=== PATIENT | male | born 1985 | race Caucasian/White ===

== ENCOUNTER 2017-09-01 19:35 | Inpatient (IN) | payer OTHER ==
[~2017-09-01] VITALS: Ht 175.3 cm; Wt 75.7 kg
[~2017-09-01 19:35] MED LIST: ABILIFY20 MG PO; BUSPIRONE HCL10 MG PO; KLONOPIN1 MG; NOHOMEMEDICATIONS; PROZAC 20 MG20 M1 PO; SEROQUEL 50 MG50 MG PO; TRAZODONE 100100 MG PO; ULTRAM 50MG TAB50 MG PO; VALIUM5 MG PO; XANAX 0.25 MG0.25 MG; XANAX 1 MG TABLE1 MG PO; XANAX1 MG PO; ZOCOR20 MG PO
[2017-09-01 19:39] VITALS: BP 137/81
[2017-09-01] MEDS ORDERED: LITHIUM CARBON150 MG PO (19:42)
[2017-09-01] MEDS ORDERED: LITHIUM CARBON300 M6 PO (19:42)
[2017-09-01] MEDS ORDERED: CHLORPROMAZINE100 MG PO (19:43)
[2017-09-01 20:05] LABS: HEMATOCRIT 43.2 % (42.0-52.0); HEMOGLOBIN 14.5 gm/dL (14.0-18.0); MCH 30.3 pg (26.0-34.0); MCHC 33.7 g/dL (28.0-37.0); MPV 8.4 fl. (7.2-11.1); NUCLEATED RBCS 0 /100WBC; PLATELET COUNT* 225 thou/uL (150-400); RDW-CV 13.2 % (10.5-14.5); WBC 14.4 thou/uL (4.0-11.0)
[2017-09-01 20:10] LABS: CALCIUM 9.4 mg/dL (8.5-10.1); CREATININE 1.1 mg/dL (0.6-1.3)
[2017-09-01 20:11] LABS: URINE BILIRUBIN NEGATIVE (Negative); URINE BLOOD NEGATIVE (Negative); URINE CLARITY CLEAR; URINE COLOR YELLOW; URINE GLUCOSE-RANDOM NEGATIVE (Negative); URINE KETONES NEGATIVE (Negative); URINE LEUKOCYTES-REFLEX NEGATIVE (Negative); URINE NITRITE-REFLEX NEGATIVE (Negative); URINE PROTEIN 1+ (Negative)
[2017-09-01 20:15] LABS: ALBUMIN 3.7 g/dL (3.4-5.0); TOTAL BILIRUBIN 0.5 mg/dL (<0.1-1.0); TOTAL PROTEIN 7.4 g/dL (6.4-8.2)
[2017-09-01 20:19] LABS: AMP/METHAMP Negative (Negative); BARBITURATES Negative (Negative); BENZODIAZEPINES Negative (Negative); COCAINE Negative (Negative); METHADONE Negative (Negative); OPIATES Negative (Negative); PCP Negative (Negative); THC Negative (Negative)
[2017-09-01 20:20] LABS: ABSOLUTE LYMPHOCYTES 1.2 thou/uL (0.8-5.3); ABSOLUTE NEUTROPHILS 12.2 thou/uL (1.6-8.1); ATYPICAL LYMPHS 2 %; PLATELET ESTIMATE ADEQUATE
[2017-09-01 20:21] LABS: ALCOHOL < 10 mg/dL (<10); SALICYLATE < 2.8 mg/dL (2.8-20.0)
[2017-09-01 20:23] LABS: ACETAMINOPHEN < 2 ug/mL (10-30)
[2017-09-01] MEDS ORDERED: NEURONTIN 400M400 M2 (21:11)
[2017-09-01] MEDS ORDERED: HYDROXYZINE HCL50 MG (21:12)
[2017-09-01 23:37] VITALS: BP 122/64
[2017-09-02] VITALS: BP 125/66
[2017-09-02 02:00] VITALS: BP 107/61
[2017-09-02 04:42] LABS: HEMATOCRIT 39.7 % (42.0-52.0); HEMOGLOBIN 13.1 gm/dL (14.0-18.0); MCH 29.7 pg (26.0-34.0); MCV 90.1 fL (80.0-100.0); MPV 8.1 fl. (7.2-11.1); RBC 4.41 mil/uL (4.50-6.00); RDW-CV 13.8 % (10.5-14.5)
[2017-09-02 05:08] LABS: ALBUMIN 2.9 g/dL (3.4-5.0); CALCIUM 8.7 mg/dL (8.5-10.1); CREATININE 1.1 mg/dL (0.6-1.3); POTASSIUM 3.6 mmol/L (3.5-5.1); TOTAL BILIRUBIN 0.4 mg/dL (<0.1-1.0); TOTAL PROTEIN 5.9 g/dL (6.4-8.2)
--- NOTE | 2017-09-02 05:18 | NUR ---
PT ARRIVED ON UNIT FROM ER AT 2345, VS AND ASSESSMENT STABLE PT ALERT AND ORIENTED X4 DENIES ANY PAIN OR NAUSEA AND PT HAD NO EPISODES OF VOMITING OVERNIGHT.PLACE ON SZ PRECUATIONS AND PADED BEDRAILS PT HAD 1:1 AT BEDSIDE. PT TELE FIRST DEGREE HEART BLOCK REGULAR AND RATE IN THE 90'S PT SLEPT THROUGH THE NIGHT BUT WAS EASILY ARROUSABLE FOR ASSESSMENTS VS AND LABS. WILL CONTINUE TO MONITOR.
--- NOTE | 2017-09-02 07:15 | NUR ---
SHIFT CHANGE REPORT GIVEN PATIENT YVONNE, RN SITTING 1:1 PATIENT ACKNOWLEDGES SUICIDA ATTEMPT AND STILL HAVING THOUGHTS AND IDEAS OF HARMING SELF US TO CALL PYSCH CONSULT PATIENT REMAINS SAFE
[2017-09-02] MEDS ORDERED: CLONAZEPAM 0.50.5 M1 PO (08:21)
--- NOTE | 2017-09-02 10:12 | EKG ---
[place] [address] ELECTROCARDIOGRAM REPORT Name: ISAURA MALCOLM Room: [address] ADM IN [facility].#: [id number] Admission: 09/01/17 Attend Phys: Freddy Miller MD Discharge: Date of : 89 Report #: [id number] THIS REPORT FOR: //name// [facility] ED Test Date: 2017-09-01 Test Time: 19:53:26 Pat Name: ISAURA MALCOLM Department: Room: [facility] Gender: M Comptroller: ANGEL Alatorre : 1985 Requested By: Romelia Reeves Order Number: [id number] MD: Chung Steev Measurements Intervals [place] Rate: 97 P: 7 NM: 230 QRS: 75 QRSD: 110 T: 43 QT: 287 QTc: 365 Interpretive Statements sinus rhythm Prolonged NM interval Probable left atrial enlargement RSR' in V1 or V2, right VCD or RVH Baseline wander in lead(s) V2 Compared to ECG 04/01/2017 23:40:12 First degree AV block now present Electronically Signed On 09-02-2017 10:12:12 MANAGER TELEMETRY by Chung Steve [email or web address] <ELECTRONICALLY SIGNED> By: Chung Steve MD, FACC 09/02/17 1012 52 52 Chung Steve MD, FACC /EPI
--- NOTE | 2017-09-02 10:35 | NUR ---
TRANSFER FROM ICU BED 8 TO TELE 2ND FLOOR RM 223 VIA WITH ASSIST OF CASSANDRA FROM TRANSPORT. S[facility] PCT TO SIT 1:1 WILL CONTINUE TO MONITOR
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
[2017-09-02 16:14] VITALS: BP 125/85
[2017-09-03] VITALS (7 sets, daily range): BP systolic 109–143; BP diastolic 76–89
[2017-09-03 04:41] LABS: HEMATOCRIT 38.3 % (42.0-52.0); MCH 30.5 pg (26.0-34.0); MCV 89.6 fL (80.0-100.0); MPV 7.8 fl. (7.2-11.1); RBC 4.28 mil/uL (4.50-6.00); RDW-CV 13.4 % (10.5-14.5); WBC 10.7 thou/uL (4.0-11.0)
[2017-09-03 05:00] LABS: CALCIUM 8.7 mg/dL (8.5-10.1); CREATININE 0.9 mg/dL (0.6-1.3); MAGNESIUM 1.7 mg/dL (1.8-2.4); POTASSIUM 3.8 mmol/L (3.5-5.1)
--- NOTE | 2017-09-03 05:37 | NUR ---
PT SLEPT SOUNDLY LAST HALF OF THE NIGHT, IV FLUIDS INFUSING, SITTER WITH PATIENT, SUICIDE PRECAUTIONS IN PLACE, NAUSEA LAST NIGHT AND PRN PHENERGAN GIVEN WITH RELIEF, CALL LIGHT IN REACH, WILL CONTINUE TO CLOSELY MONITOR
--- NOTE | 2017-09-03 07:00 | NUR ---
CHANGE OF SHIFT REPORT GIVEN ASSUMED PATIENT CARE PATIENT SEEN AT BEDSIDE, ASLEEP REMAINS SI, 1:1 STILL IN ROOM ROOM REMAINS SECURED FOR SI
--- NOTE | 2017-09-03 13:46 | NUR ---
PT MEDICALLY CLEARED FOR INPT PSYCH TRANSFER. PT VOLUNTARY. CALLS PLACED TO THE FOLLOWING INPT PSYCH FACILITIES: [facility], PAGED X2, AWAITING RESPON[facility] INPT PSY[facility]ENN[facility]. THEY ARE AT [place], SUGGESTED CALLING BACK AFTER 3PM [facility] INPT PSYCH/[facility]. SHE ASKED THAT REFERRAL BE FAXED, SENT TO [phone]
--- NOTE | 2017-09-03 19:05 | NUR ---
PATIENT ACCEPTED AT [facility] REPORT GIVEN TO RN CHART COPIED FORMS FOR TRANSFER FILLED OUT PERSONAL BELONGINGS SECURED FROM SECURITY PATIENTS FATHER CONTACTED AND BROUGHT A CHANGE OF CLEAN CLOTHES PATIENTS CLOTHING ON ADMISSION WAS SOLIED PATIENT NOTIFIED OF TRANSFER TO FACILITY NIGHT RN TO ARRANGE TRANSPORT AND FINISH FILLING OUT FORMS FOR TRANSPORT
--- NOTE | 2017-09-03 21:05 | NUR ---
2100 PATIENT DC'D VIA NON EMERGENCY TRANSPORT TO [facility] INPATIENT THE PATIENT WAS COOPERATIVE MEDICATIONS ADMINISTERED PRIOR TO DC GABAPENTIN AND CLONOPIN ORDERED PATIENT REFUSED LITHIUM STATING HE DOES NOT LIKE THE WAY IT MAKES HIM FEEL. ALL BELONGINGS WAS SENT WITH THE PATIENT CALLED [facility] THE STAFF NURSE PLAN TO CALL BACK LEFT MESSAGE REGARDING MEDICATIONS ADMINISTERED AND DRUG REFUSAL
--- NOTE | 2017-09-05 09:55 | NUR ---
NOTIFIED [facility]S [facility] CM/JULIANNE ALMONTE OF PT'S DISPOSION ON SAT. JULIANNE STATED HE WOULD F/U WITH THEM
== END 2017-09-03 21:00 | DRG 917 ==
LOC: M.ERS 19:35 → M.TBA-ER 22:19 → M.2W 22:19 → M.ICU 09-02 00:04 → M.2W 09-02 10:47
PROVIDERS: Emergency Medicine; Internal Medicine; ADMIT Internal Medicine
DX: T43.3X2A Poisoning by phenothiazine antipsychotics and neuroleptics, intentional self-harm, initial encounter (principal); G92 Toxic encephalopathy; R45.851 Suicidal ideations; R65.10 Systemic inflammatory response syndrome (SIRS) of non-infectious origin without acute organ dysfunction; F41.9 Anxiety disorder, unspecified; F31.9 Bipolar disorder, unspecified; F20.9 Schizophrenia, unspecified; F17.210 Nicotine dependence, cigarettes, uncomplicated; T56.892A Toxic effect of other metals, intentional self-harm, initial encounter; F29 Unspecified psychosis not due to a substance or known physiological condition; Y92.89 Other specified places as the place of occurrence of the external cause; Z79.899 Other long term (current) drug therapy; Z28.21 Immunization not carried out because of patient refusal

== ENCOUNTER 2017-12-24 20:06 | Emergency (ER) | payer OTHER ==
[~2017-12-24] VITALS: Ht 177.8 cm; Wt 85.3 kg
[~2017-12-24 20:06] MED LIST changes: +CHLORPROMAZINE100 MG PO; +CLONAZEPAM 0.50.5 M1 PO; +HYDROXYZINE HCL50 MG; +LITHIUM CARBON150 MG PO; +LITHIUM CARBON300 M6 PO; +NEURONTIN 400M400 M2
[2017-12-24 20:38] LABS: HEMATOCRIT 46.3 % (42.0-52.0); HEMOGLOBIN 15.5 gm/dL (14.0-18.0); MCH 29.4 pg (26.0-34.0); MCHC 33.4 g/dL (28.0-37.0); MCV 87.9 fL (80.0-100.0); MPV 8.4 fl. (7.2-11.1); NUCLEATED RBCS 0 /100WBC; PLATELET COUNT* 293 thou/uL (150-400); RBC 5.27 mil/uL (4.50-6.00); RDW-CV 14.6 % (10.5-14.5); WBC 11.1 thou/uL (4.0-11.0)
[2017-12-24 20:41] LABS: AMP/METHAMP Negative (Negative); BARBITURATES Negative (Negative); BENZODIAZEPINES Negative (Negative); COCAINE Negative (Negative); METHADONE Negative (Negative); OPIATES Negative (Negative); PCP Negative (Negative); THC Negative (Negative)
[2017-12-24 20:52] LABS: ALBUMIN 4.1 g/dL (3.4-5.0); CALCIUM 8.5 mg/dL (8.5-10.1); POTASSIUM 3.6 mmol/L (3.5-5.1); TOTAL BILIRUBIN 0.2 mg/dL (<0.1-1.0); TOTAL PROTEIN 8.8 g/dL (6.4-8.2)
[2017-12-24 20:58] LABS: ABSOLUTE BASOPHILS 0.3 thou/uL (0.0-0.2); ABSOLUTE EOSINOPHILS 0.3 thou/uL (0.0-0.7); ABSOLUTE LYMPHOCYTES 3.8 thou/uL (0.8-5.3); ABSOLUTE MONOCYTES 0.4 thou/uL (0.0-1.2); ABSOLUTE NEUTROPHILS 6.2 thou/uL (1.6-8.1); ATYPICAL LYMPHS 8 %; METAMYELOCYTES 2 %; PLATELET ESTIMATE ADEQUATE
[2017-12-24 21:00] LABS: ACETAMINOPHEN < 2 ug/mL (10-30); SALICYLATE 5.4 mg/dL (2.8-20.0)
[2017-12-25 03:38] VITALS: BP 103/55
== END 2017-12-25 03:39 | disposition home or self-care (01) ==
LOC: M.ERS 20:06
PROVIDERS: Emergency Medicine
DX: F10.129 Alcohol abuse with intoxication, unspecified (principal); F31.9 Bipolar disorder, unspecified; F20.9 Schizophrenia, unspecified; F17.210 Nicotine dependence, cigarettes, uncomplicated

== ENCOUNTER 2018-03-18 18:22 | Emergency (ER) | payer OTHER ==
[~2018-03-18] VITALS: Ht 177.8 cm; Wt 67.8 kg
[2018-03-18 18:42] LABS: ABSOLUTE BASOPHILS 0.1 thou/uL (0.0-0.2); ABSOLUTE EOSINOPHILS 0.1 thou/uL (0.0-0.7); ABSOLUTE LYMPHOCYTES 2.2 thou/uL (0.8-5.3); ABSOLUTE MONOCYTES 0.4 thou/uL (0.0-1.2); ABSOLUTE NEUTROPHILS 3.3 thou/uL (1.6-8.1); EOSINOPHILS 1.1 %; HEMATOCRIT 45.7 % (42.0-52.0); MCH 29.7 pg (26.0-34.0); MCHC 32.9 g/dL (28.0-37.0); MONOCYTES 6.6 %; MPV 8.9 fl. (7.2-11.1); NUCLEATED RBCS 0 /100WBC; PLATELET COUNT* 325 thou/uL (150-400); POLYS 55.3 %; RBC 5.07 mil/uL (4.50-6.00)
[2018-03-18 18:48] LABS: ANION GAP 10 mmol/L (7-16); BUN 7 mg/dL (7-18); CALCIUM 8.9 mg/dL (8.5-10.1); CHLORIDE 107 mmol/L (98-107); CO2 24 mmol/L (21-32); GLUCOSE 81 mg/dL (70-99); SODIUM 141 mmol/L (136-145)
[2018-03-18 18:51] LABS: APTT 26.7 Seconds (25.0-31.3); INR 1.1; PROTIME 10.3 Seconds (9.20-11.50)
[2018-03-18 18:59] LABS: ALBUMIN 4.6 g/dL (3.4-5.0); ALKALINE PHOSPHATASE 60 U/L (46-116); NT-PRO BRAIN NAT PEPTIDE 42 pg/mL (<300); SGOT 27 U/L (15-37); SGPT 35 U/L (30-65); TOTAL BILIRUBIN 0.3 mg/dL (<0.1-1.0); TOTAL PROTEIN 8.5 g/dL (6.4-8.2); TROPONIN-I LEVEL <0.06 ng/mL (<0.06)
[2018-03-18 19:34] LABS: URINE BILIRUBIN NEGATIVE (Negative); URINE BLOOD TRACE (Negative); URINE CLARITY CLEAR; URINE COLOR YELLOW; URINE GLUCOSE-RANDOM NEGATIVE (Negative); URINE KETONES NEGATIVE (Negative); URINE LEUKOCYTES NEGATIVE (Negative); URINE NITRITE NEGATIVE (Negative); URINE PROTEIN NEGATIVE (Negative); URINE SPECIFIC GRAVITY >= 1.030 (1.005-1.030); URINE UROBILINOGEN 0.2 E.U./dl (0.2-1.0)
[2018-03-18 19:42] LABS: AMP/METHAMP Negative (Negative); BARBITURATES Negative (Negative); BENZODIAZEPINES POSITIVE (Negative); COCAINE Negative (Negative); METHADONE Negative (Negative); OPIATES Negative (Negative); PCP Negative (Negative); THC POSITIVE (Negative)
[2018-03-18 19:49] VITALS: BP 0/0
--- NOTE | 2018-03-19 12:30 | EKG ---
[place] [address] ELECTROCARDIOGRAM REPORT Name: ISAURA MALCOLM Room: [facility]#: [id number] Admission: 03/18/18 Attend Phys: Discharge: 03/18/18 Date of : 89 Report #: [id number] THIS REPORT FOR: //name// [facility] ED Test Date: 2018-03-18 Test Time: 18:30:09 Pat Name: ISAURA MALCOLM Department: Room: Gender: M Amplifier Mechanic: Landry MATTHEWS : 1985 Requested By: Suzie Brito Order Number: [id number] MD: Chung Steve Measurements Intervals [place] Rate: 95 P: 76 [place]: 185 QRS: 88 QRSD: 89 T: 59 QT: 361 QTc: 454 Interpretive Statements Sinus rhythm Probable left atrial enlargement Compared to ECG 09/01/2017 19:53:26 ST (T wave) deviation now present First degree AV block no longer present Electronically Signed On 03-19-2018 12:30:11 CDT by Chung Steve [email or web address] <ELECTRONICALLY SIGNED> By: Chung Steve MD, FAC 03/19/18 1230 1830 1830 Chung Steve MD, [facility] /EPI
== END 2018-03-18 19:52 | disposition home or self-care (01) ==
LOC: M.ERS 18:22
PROVIDERS: Personal Emergency Response Attendant
DX: F41.9 Anxiety disorder, unspecified (principal); F10.129 Alcohol abuse with intoxication, unspecified; F15.10 Other stimulant abuse, uncomplicated; F20.9 Schizophrenia, unspecified; F31.9 Bipolar disorder, unspecified; F17.210 Nicotine dependence, cigarettes, uncomplicated; F12.10 Cannabis abuse, uncomplicated